=== PATIENT | female | born 1990 | race American Indian/Alaskan Native ===

== ENCOUNTER 2017-08-01 16:57 | Emergency (ER) | payer MEDICAID, OTHER ==
[2017-08-01 17:03] VITALS: BP 113/69
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
[2017-08-01] MEDS ORDERED: MOTRIN PO ONE (19:05)
== END 2017-08-01 20:00 | disposition home or self-care (01) ==
LOC: ED 16:57
DX: S13.4XXA Sprain of ligaments of cervical spine, initial encounter (principal); S39.012A Strain of muscle, fascia and tendon of lower back, initial encounter; V47.5XXA Car driver injured in collision with fixed or stationary object in traffic accident, initial encounter; Y93.89 Activity, other specified; Y92.89 Other specified places as the place of occurrence of the external cause; Y99.8 Other external cause status
CPT/HCPCS: 99282